=== PATIENT | female | born 1940 | race Caucasian/White ===

== ENCOUNTER 2020-08-03 09:32 | Inpatient (IN) | payer MEDICARE, MEDICAID ==
[~2020-08-03] VITALS: Ht 162.6 cm; Wt 65.5 kg
[2020-08-03] VITALS (14 sets, daily range): BP systolic 111–132; BP diastolic 40–61
[2020-08-03] MEDS ORDERED: MORPHINE SULFATE 4 MG/ML CPJ (NOT FOR IM USE) IV STA (09:51)
[2020-08-03] MEDS ORDERED: ONDANSETRON HCL 4MG/2ML INJ IV STA (09:51)
[2020-08-03 10:23] LABS: CHLORIDE 105 mEq/L (98-107)
[2020-08-03 10:25] LABS: BASOPHILS % 0.5 % (0.0-2.0); EOSINOPHILS % 0.1 % (0.0-5.0); HEMATOCRIT. 31.1 % (36.0-48.0); HEMOGLOBIN. 10.9 g/dL (12.0-16.0); LYMPHOCYTES % 10.1 % (20.0-50.0); MEAN CORPUSCULAR HEMOGLOBIN 33.8 pg (28.0-32.0); MEAN CORPUSCULAR VOLUME 96.3 fL (81.0-99.0); MEAN PLATELET VOLUME 10.2 fl (7.4-10.4); MONOCYTES % 6.9 % (2.0-8.0); NEUTROPHILS % 82.4 % (40.0-76.0); PLATELET 131 x1000/uL (130-400); RED BLOOD CELL COUNT 3.23 mill/uL (4.2-5.4)
[2020-08-03] MEDS ORDERED: LEVETIRACETAM 500MG PREMIX 100 ML IV ONE (11:30)
[2020-08-03 12:11] LABS: INR 1.1; PARTIAL THROMBOPLASTIN TIME 30.2 sec (23.4-31.0); PROTHROMBIN TIME 11.4 sec (9.6-11.0)
[2020-08-03] MEDS ORDERED: NICARDIPINE 100 MG in SODIUM CHLORIDE 0.9% 60 ML IV PRN (12:30)
[2020-08-03] MEDS ORDERED: MAGNESIUM/ALUMINUM HYDROXIDE/SIMETHICONE 30ML UDC PO PRN (13:30)
[2020-08-03] MEDS ORDERED: CLONIDINE 0.1MG TABLET PO PRN (13:30)
[2020-08-03] MEDS ORDERED: LORAZEPAM 2MG/ML CPJ IV PRN (13:30)
[2020-08-03] MEDS ORDERED: DOCUSATE SODIUM 100MG CAPSULE PO PRN (13:30)
[2020-08-03] MEDS ORDERED: GUAIFENESIN 200MG/10ML SUGAR FREE UDC PO PRN (13:30)
[2020-08-03] MEDS ORDERED: ACETAMINOPHEN 325MG TABLET PO PRN (13:30)
[2020-08-03] MEDS: DEXT 5%/0.9% NACL 1,000 ML IV SCH (14:13)
[2020-08-03 19:15] LABS: CLARITY URINE CLEAR (CLEAR); COLOR URINE YELLOW (YELLOW); KETONES URINE TRACE (NEGATIVE); LEUKOCYTE ESTERASE URINE NEGATIVE (NEGATIVE); NITRITE URINE NEGATIVE (NEGATIVE); OCCULT BLOOD URINE NEGATIVE (NEGATIVE); PROTEIN URINE 3+ (NEGATIVE); SPECIFIC GRAVITY URINE 1.023 (1.005-1.030); UROBILINOGEN URINE 0.2 E.U./dL (0.2-1.0)
[2020-08-03] MEDS: ONDANSETRON HCL 4MG/2ML INJ IV PRN (21:37)
[2020-08-03] MEDS: MORPHINE SULFATE 2 MG/ML CPJ (NOT FOR IM USE) IV PRN (21:38)
[2020-08-03] MEDS: NICARDIPINE 100 MG in SODIUM CHLORIDE 0.9% 60 ML IV PRN (22:48)
[2020-08-04] VITALS (78 sets, daily range): BP systolic 117–153; BP diastolic 42–101
[2020-08-04] MEDS ORDERED: AMLO10TA4 MT (00:22)
[2020-08-04] MEDS ORDERED: APIX2.5T MT (00:22)
[2020-08-04] MEDS: NICARDIPINE 100 MG in SODIUM CHLORIDE 0.9% 60 ML IV PRN (00:53)
[2020-08-04] MEDS: MORPHINE SULFATE 2 MG/ML CPJ (NOT FOR IM USE) IV PRN ×2 (03:55→06:06)
[2020-08-04 05:04] LABS: BASOPHILS % 0.3 % (0.0-2.0); EOSINOPHILS % 0.1 % (0.0-5.0); HEMOGLOBIN. 10.7 g/dL (12.0-16.0); LYMPHOCYTES % 10.4 % (20.0-50.0); MEAN CORPUSCULAR HEMOGLOBIN 33.6 pg (28.0-32.0); MEAN CORPUSCULAR VOLUME 96.9 fL (81.0-99.0); MEAN PLATELET VOLUME 8.7 fl (7.4-10.4); NEUTROPHILS % 82.2 % (40.0-76.0); PLATELET 112 x1000/uL (130-400); RED CELL DISTRIBUTION WIDTH 13.4 % (11.6-14.6)
[2020-08-04 05:09] LABS: CHLORIDE 102 mEq/L (98-107)
[2020-08-04 05:10] LABS: PROTHROMBIN TIME 11.1 sec (9.6-11.0)
[2020-08-04 05:31] LABS: HDL CHOLESTEROL 66 mg/dL (40-59)
[2020-08-04 05:35] LABS: LDL CHOLESTEROL 40 mg/dL (5-100)
[2020-08-04 05:43] LABS: T4 FREE 1.12 ng/dL (0.76-1.46)
[2020-08-04] MEDS: ONDANSETRON HCL 4MG/2ML INJ IV PRN (06:51)
[2020-08-04] MEDS: HYDROMORPHONE HCL/PF 2MG/ML CPJ IV PRN ×3 (08:37→20:32)
[2020-08-04] MEDS ORDERED: LEVO88TA7 PO (10:17)
[2020-08-04] MEDS ORDERED: FURO-152 PO (10:17)
[2020-08-04] MEDS ORDERED: PANT40TA51 PO (10:17)
[2020-08-04] MEDS ORDERED: NIFE-33 PO (10:17)
[2020-08-04] MEDS ORDERED: NEPVIT MT (10:17)
[2020-08-04] MEDS: DEXT 5%/0.9% NACL 1,000 ML IV SCH ×2 (14:49→14:50)
[2020-08-04] MEDS ORDERED: DEXTROSE 50% WATER 50ML SYRINGE IV PRN (20:48)
[2020-08-05] VITALS (10 sets, daily range): BP systolic 127–161; BP diastolic 57–74
[2020-08-05] MEDS: BLOOD SUGAR DIAGNOSTIC STRIP TEST SCH ×4 (00:55→17:29)
[2020-08-05] MEDS: HYDROMORPHONE HCL/PF 2MG/ML CPJ IV PRN (03:31)
[2020-08-05] MEDS: INSULIN LISPRO 100 UNITS/ML SUBCUT SCH ×4 (06:00→17:29)
[2020-08-05 06:25] LABS: BASOPHILS % 0.3 % (0.0-2.0); EOSINOPHILS % 0.3 % (0.0-5.0); HEMATOCRIT. 31.1 % (36.0-48.0); HEMOGLOBIN. 10.5 g/dL (12.0-16.0); LYMPHOCYTES % 9.4 % (20.0-50.0); MEAN CORPUSCULAR HEMOGLOBIN 33.6 pg (28.0-32.0); MEAN CORPUSCULAR VOLUME 99.1 fL (81.0-99.0); MEAN PLATELET VOLUME 8.6 fl (7.4-10.4); MONOCYTES % 8.1 % (2.0-8.0); NEUTROPHILS % 81.9 % (40.0-76.0); PLATELET 99 x1000/uL (130-400); RED BLOOD CELL COUNT 3.14 mill/uL (4.2-5.4)
[2020-08-05] MEDS ORDERED: BACITRACIN 15GM TUBE TOP ONE (08:23)
[2020-08-05] MEDS ORDERED: BUPIVACAINE HCL/PF 0.5% (5MG/ML) 10ML ONE ×2 (08:23→11:07)
[2020-08-05] MEDS ORDERED: BACITRACIN 50,000 UNITS/VIAL ONE (08:24)
[2020-08-05] MEDS ORDERED: VANCOMYCIN HCL 1 GM/VIAL ONE (08:24)
[2020-08-05] MEDS ORDERED: ROPIVACAINE HCL 10MG/ML 20 ML VIAL EPI ONE (08:25)
[2020-08-05] MEDS ORDERED: AMLODIPINE 5MG TABLET PO SCH (11:15)
[2020-08-05] MEDS ORDERED: GLYCOPYRROLATE 0.2 MG/ML 2ML VIAL ONE (11:23)
[2020-08-05] MEDS ORDERED: FENTANYL CITRATE/PF 50MCG/ML 2ML VIAL ONE (11:23)
[2020-08-05] MEDS ORDERED: MIDAZOLAM HCL 2 MG/2 ML VIAL ONE (11:23)
[2020-08-05] MEDS ORDERED: SUCCINYLCHOLINE CHLORIDE 200MG/10ML IV ONE (11:23)
[2020-08-05] MEDS ORDERED: PROPOFOL 200MG/20ML VIAL IV ONE (11:23)
[2020-08-05] MEDS ORDERED: CEFAZOLIN SODIUM 1000MG/VIAL ONE (11:24)
[2020-08-05] MEDS ORDERED: METOCLOPRAMIDE HCL 10MG/2ML VIAL ONE (11:24)
[2020-08-05] MEDS ORDERED: ONDANSETRON HCL 4MG/2ML INJ ONE (11:24)
[2020-08-05] MEDS ORDERED: MORPHINE SULFATE 2 MG/ML CPJ (NOT FOR IM USE) IV PRN (12:30)
[2020-08-05] MEDS ORDERED: ONDANSETRON HCL 4MG/2ML INJ IV PRN (12:30)
[2020-08-05] MEDS ORDERED: SODIUM CHLORIDE 0.9% 1,000 ML IV ONE (12:30)
[2020-08-05] MEDS ORDERED: HYDROMORPHONE HCL/PF 2MG/ML CPJ IV PRN (12:30)
[2020-08-05] MEDS ORDERED: CEFAZOLIN SODIUM 1000MG/VIAL IV SCH (14:00)
[2020-08-05] MEDS: MORPHINE SULFATE 2 MG/ML CPJ (NOT FOR IM USE) IV PRN (17:38)
[2020-08-05] MEDS: METOPROLOL TARTRATE 25MG TABLET PO SCH (21:24)
[2020-08-06] VITALS (11 sets, daily range): BP systolic 110–156; BP diastolic 41–66
[2020-08-06] MEDS: BLOOD SUGAR DIAGNOSTIC STRIP TEST SCH ×4 (00:05→17:20)
[2020-08-06] MEDS: INSULIN LISPRO 100 UNITS/ML SUBCUT SCH ×4 (05:53→17:20)
[2020-08-06 08:29] LABS: BASOPHILS % 0.4 % (0.0-2.0); EOSINOPHILS % 0.2 % (0.0-5.0); HEMATOCRIT. 23.6 % (36.0-48.0); LYMPHOCYTES % 10.8 % (20.0-50.0); MEAN CORPUSCULAR HEMOGLOBIN 34.2 pg (28.0-32.0); MEAN CORPUSCULAR VOLUME 100.4 fL (81.0-99.0); MEAN PLATELET VOLUME 9.2 fl (7.4-10.4); MONOCYTES % 9.2 % (2.0-8.0); NEUTROPHILS % 79.4 % (40.0-76.0); PLATELET 95 x1000/uL (130-400); RED BLOOD CELL COUNT 2.35 mill/uL (4.2-5.4); RED CELL DISTRIBUTION WIDTH 13.7 % (11.6-14.6)
[2020-08-06] MEDS: METOPROLOL TARTRATE 25MG TABLET PO SCH (08:34)
[2020-08-06] MEDS: CEFAZOLIN 1000MG PREMIX 50 ML IV SCH (08:34)
[2020-08-06] MEDS: AMLODIPINE 5MG TABLET PO SCH ×2 (08:39→21:35)
[2020-08-06] MEDS: HYDROCODONE/ACETAMINOPHEN 5/325MG TABLET PO PRN ×3 (09:19→21:36)
[2020-08-06] MEDS ORDERED: MAGNESIUM HYDROXIDE 400MG/5ML 30ML UDC PO PRN (10:15)
[2020-08-06] MEDS ORDERED: MAGNESIUM/ALUMINUM HYDROXIDE/SIMETHICONE 30ML UDC PO PRN (10:15)
[2020-08-06] MEDS: DEXT 5%/0.9% NACL 1,000 ML IV SCH (12:18)
[2020-08-07] VITALS (16 sets, daily range): BP systolic 127–156; BP diastolic 45–94
[2020-08-07] MEDS: BLOOD SUGAR DIAGNOSTIC STRIP TEST SCH ×5 (00:06→23:57)
[2020-08-07] MEDS: METOPROLOL TARTRATE 25MG TABLET PO SCH ×3 (00:10→23:57)
[2020-08-07] MEDS: ONDANSETRON HCL 4MG/2ML INJ IV PRN (01:37)
[2020-08-07] MEDS: HYDROCODONE/ACETAMINOPHEN 5/325MG TABLET PO PRN ×2 (05:12→21:15)
[2020-08-07] MEDS: INSULIN LISPRO 100 UNITS/ML SUBCUT SCH ×4 (06:00→18:00)
[2020-08-07 06:48] LABS: BASOPHILS % 0.3 % (0.0-2.0); EOSINOPHILS % 2.3 % (0.0-5.0); LYMPHOCYTES % 12.1 % (20.0-50.0); MEAN CORPUSCULAR HEMOGLOBIN 34.1 pg (28.0-32.0); MEAN CORPUSCULAR VOLUME 99.8 fL (81.0-99.0); MEAN PLATELET VOLUME 8.3 fl (7.4-10.4); MONOCYTES % 9.3 % (2.0-8.0); PLATELET 97 x1000/uL (130-400); RED BLOOD CELL COUNT 2.06 mill/uL (4.2-5.4); RED CELL DISTRIBUTION WIDTH 14.1 % (11.6-14.6)
[2020-08-07 08:17] LABS: HEMATOCRIT. 20.6 % (36.0-48.0)
[2020-08-07] MEDS: AMLODIPINE 5MG TABLET PO SCH ×2 (09:06→21:15)
[2020-08-07] MEDS: CEFAZOLIN 1000MG PREMIX 50 ML IV SCH (09:06)
[2020-08-07] MEDS: DEXT 5%/0.9% NACL 1,000 ML IV SCH (13:00)
[2020-08-07 21:43] LABS: HEMATOCRIT 26.1 % (36.0-48.0); HEMOGLOBIN 9.1 g/dL (12.0-16.0)
[2020-08-07 21:49] LABS: PROTHROMBIN TIME 10.6 sec (9.6-11.0)
[2020-08-08] VITALS (9 sets, daily range): BP systolic 128–146; BP diastolic 41–57
[2020-08-08] MEDS: HYDROCODONE/ACETAMINOPHEN 5/325MG TABLET PO PRN ×2 (05:39→13:16)
[2020-08-08] MEDS: BLOOD SUGAR DIAGNOSTIC STRIP TEST SCH ×2 (05:39→11:52)
[2020-08-08] MEDS: INSULIN LISPRO 100 UNITS/ML SUBCUT SCH ×3 (05:44→12:11)
[2020-08-08] MEDS: ONDANSETRON HCL 4MG/2ML INJ IV PRN (06:05)
[2020-08-08 06:12] LABS: BASOPHILS % 0.4 % (0.0-2.0); EOSINOPHILS % 3.5 % (0.0-5.0); HEMATOCRIT. 24.8 % (36.0-48.0); HEMOGLOBIN. 8.5 g/dL (12.0-16.0); LYMPHOCYTES % 17.5 % (20.0-50.0); MEAN PLATELET VOLUME 8.6 fl (7.4-10.4); NEUTROPHILS % 68.6 % (40.0-76.0); PLATELET 96 x1000/uL (130-400); RED BLOOD CELL COUNT 2.59 mill/uL (4.2-5.4); RED CELL DISTRIBUTION WIDTH 15.1 % (11.6-14.6)
[2020-08-08] MEDS: CEFAZOLIN 1000MG PREMIX 50 ML IV SCH (08:10)
[2020-08-08] MEDS: METOPROLOL TARTRATE 25MG TABLET PO SCH (08:11)
[2020-08-08] MEDS: AMLODIPINE 5MG TABLET PO SCH (08:11)
[2020-08-08] MEDS ORDERED: HYDRALAZINE HCL 25MG TABLET PO SCH (14:00)
[2020-08-08] MEDS ORDERED: METOPROLOL TARTRATE 25MG TABLET PO SCH (21:00)
== END 2020-08-08 16:28 | disposition home health service (06) | DRG 480 ==
LOC: ER 09:41 → MICUSO 11:29 → EDBEDREQSVC 11:32 → EDBEDREQ 11:32 → EDBEDREQTM 11:32 → SUPCPDRO 13:22 → ENRESERV 19:39 → 3WST 08-04 21:10
PROVIDERS: ADMIT Hospitalist; ATTEND Hospitalist
PROC: 5A1D70Z Performance of Urinary Filtration, Intermittent, Less than 6 Hours Per Day (ICD-10-PCS; 2020-08-04)
PROC: 0QS604Z Reposition Right Upper Femur with Internal Fixation Device, Open Approach (ICD-10-PCS; principal; 2020-08-05)
PROC: 5A1D70Z Performance of Urinary Filtration, Intermittent, Less than 6 Hours Per Day (ICD-10-PCS; 2020-08-06)
PROC: 30233N1 Transfusion of Nonautologous Red Blood Cells into Peripheral Vein, Percutaneous Approach (ICD-10-PCS; 2020-08-07)
PROC: 5A1D70Z Performance of Urinary Filtration, Intermittent, Less than 6 Hours Per Day (ICD-10-PCS; 2020-08-08)
PROC: 4A10X4Z Monitoring of Central Nervous Electrical Activity, External Approach (ICD-10-PCS; 2020-08-08)
DX: S72.141A Displaced intertrochanteric fracture of right femur, initial encounter for closed fracture (principal); I61.5 Nontraumatic intracerebral hemorrhage, intraventricular; N18.6 End stage renal disease; I50.33 Acute on chronic diastolic (congestive) heart failure; D62 Acute posthemorrhagic anemia; E44.1 Mild protein-calorie malnutrition; D68.59 Other primary thrombophilia; I13.2 Hypertensive heart and chronic kidney disease with heart failure and with stage 5 chronic kidney disease, or end stage renal disease; I31.3 Pericardial effusion (noninflammatory); E78.00 Pure hypercholesterolemia, unspecified; D69.6 Thrombocytopenia, unspecified; Z99.2 Dependence on renal dialysis; E03.9 Hypothyroidism, unspecified; E11.22 Type 2 diabetes mellitus with diabetic chronic kidney disease; E78.5 Hyperlipidemia, unspecified; R79.89 Other specified abnormal findings of blood chemistry; R53.1 Weakness; Z20.822 Contact with and (suspected) exposure to COVID-19; F32.9 Major depressive disorder, single episode, unspecified; K21.9 Gastro-esophageal reflux disease without esophagitis; I48.0 Paroxysmal atrial fibrillation; W06.XXXA Fall from bed, initial encounter; S09.90XA Unspecified injury of head, initial encounter; Z79.01 Long term (current) use of anticoagulants; Z85.05 Personal history of malignant neoplasm of liver; Z68.24 Body mass index [BMI] 24.0-24.9, adult; Y93.89 Activity, other specified; Y92.092 Bedroom in other non-institutional residence as the place of occurrence of the external cause; Y99.8 Other external cause status
CPT/HCPCS: 36415; 71045; 72192; 73502; 73552; 73560; 76000; 80048; 80053; 80061; 81003; 82962; 83036; 83880; 84439; 84443; 84484; 85014; 85018; 85025; 85049; 85384; 86850; 86900; 86920; 87426; 93005; 93306; 95816; 97162; 97166; 97530; 99291; C1713; J0330; J0690; J1170; J1815; J1953; J2250; J2270; J2405; J2704; J2765; J2795; J3010; J3370; J3490; J7042; J7050; P9016; A4315

== ENCOUNTER 2021-11-17 10:57 | Emergency (ER) | payer MEDICARE, MEDICAID ==
[~2021-11-17] VITALS: Ht 160 cm; Wt 66.0 kg
[~2021-11-17 10:57] MED LIST: AMLO10TA4 MT; APIX2.5T MT; FURO-152 PO; LEVO88TA7 PO; NEPVIT MT; NIFE-33 PO; PANT40TA51 PO
[2021-11-17] MEDS ORDERED: ONDANSETRON HCL 4MG/2ML INJ IV PRN (12:00)
[2021-11-17] MEDS ORDERED: IPRATROPIUM/ALBUTEROL 0.5-3(2.5)MG/3ML NEB NEB PRN (12:00)
[2021-11-17] MEDS ORDERED: CLONIDINE 0.1MG TABLET PO PRN (12:00)
[2021-11-17] MEDS ORDERED: ACETAMINOPHEN 325MG TABLET PO PRN (12:00)
[2021-11-17] MEDS ORDERED: ENOXAPARIN 40MG/0.4ML SYR SUBCUT SCH (12:00)
[2021-11-17 12:05] LABS: BASOPHILS % 0.5 % (0.0-2.0); EOSINOPHILS % 3.2 % (0.0-5.0); HEMATOCRIT. 26.2 % (36.0-48.0); MEAN CORPUSCULAR HEMOGLOBIN 33.5 pg (28.0-32.0); MEAN CORPUSCULAR VOLUME 97.8 fL (81.0-99.0); MEAN PLATELET VOLUME 8.3 fl (7.4-10.4); MONOCYTES % 9.5 % (2.0-8.0); NEUTROPHILS % 59.8 % (40.0-76.0); PLATELET 82 x1000/uL (130-400); RED BLOOD CELL COUNT 2.68 mill/uL (4.2-5.4); RED CELL DISTRIBUTION WIDTH 14.5 % (11.6-14.6)
[2021-11-17 12:15] LABS: PHOSPHORUS 4.6 mg/dL (2.5-4.9)
[2021-11-17] MEDS ORDERED: CEFTRIAXONE 1 G PREMIX 50 ML IV SCH (13:00)
[2021-11-17 14:25] LABS: HEPATITIS B SURFACE ANTIGEN NEGATIVE
[2021-11-17 14:39] VITALS: BP 102/65
[2021-11-17] MEDS ORDERED: APIXABAN 2.5 MG TABLET PO SCH (17:00)
[2021-11-18] MEDS ORDERED: LEVOTHYROXINE SODIUM 88MCG TABLET PO SCH (09:00)
[2021-11-18] MEDS ORDERED: AMLODIPINE 10MG TABLET PO SCH (09:00)
[2021-11-18] MEDS ORDERED: FOLIC ACID/VITAMIN B COMP W-C TABLET PO SCH (09:00)
== END 2021-11-17 14:43 | disposition home or self-care (01) ==
LOC: ER 10:57 → CANBEDREQ 14:37 → ER 14:43
DX: E11.22 Type 2 diabetes mellitus with diabetic chronic kidney disease (principal); I12.0 Hypertensive chronic kidney disease with stage 5 chronic kidney disease or end stage renal disease; N18.6 End stage renal disease; Z20.822 Contact with and (suspected) exposure to COVID-19
CPT/HCPCS: 36415; 71045; 80069; 85025; 86705; 86709; 86803; 87040; 87340; 87426; 96365; 99284; C9803; J0696

== ENCOUNTER → 2023-06-20 | Day surgery (SDC) | payer MEDICARE, MEDICAID ==
[~2023-06-20] VITALS: Ht 160 cm; Wt 63.5 kg
[~2023-06-20] MED LIST changes: +AMI2 PO; -AMLO10TA4 MT; +AMOX1TAB16 PO; +ASPI-1160 PO; +AZIT250T12 PO; +FENTANYL CITRATE/PF 50MCG/ML 2ML VIAL ONE; -FURO-152 PO; +GENTAMICIN/NS IRRIGATION 500 ML IR NR; +LIDOCAINE HCL 1% 20ML VIAL (Pyxis) INJ ONE; +MIDAZOLAM HCL 2 MG/2 ML VIAL ONE; +MIDO5TAB4 PO; +MIRT7.5T11 PO; -NIFE-33 PO; +ONDANSETRON HCL 4MG/2ML INJ ONE; +PRAV40TA58 PO
[2023-06-20 08:16] LABS: BASOPHILS % 0.4 % (0.0-2.0); DIFFERENTIAL COMMENT 0; EOSINOPHILS % 1.6 % (0.0-5.0); HEMATOCRIT. 26.7 % (36.0-48.0); HEMOGLOBIN. 9.2 g/dL (12.0-16.0); LYMPHOCYTES % 9.5 % (20.0-50.0); MEAN CORPUSCULAR HEMOGLOBIN 35.4 pg (28.0-32.0); MEAN CORPUSCULAR HGB CONC 34.5 g/dL (31.0-37.0); MEAN CORPUSCULAR VOLUME 102.6 fL (81.0-99.0); MEAN PLATELET VOLUME 8.1 fl (7.4-10.4); MONOCYTES % 11.9 % (2.0-8.0); NEUTROPHILS % 76.6 % (40.0-76.0); PLATELET 112 x1000/uL (130-400); RED CELL DISTRIBUTION WIDTH 15.7 % (11.6-14.6); WHITE BLOOD COUNT 3.5 x1000/uL (4.5-11.0)
[2023-06-20 08:27] LABS: INR 1.1; PARTIAL THROMBOPLASTIN TIME 30.5 sec (23.4-31.0); PROTHROMBIN TIME 11.7 sec (9.6-11.0)
[2023-06-20 08:32] LABS: POTASSIUM 3.7 mEq/L (3.5-5.1)
[2023-06-20 08:33] LABS: CREATININE 6.6 mg/dL (0.6-1.0)
== END | disposition home or self-care (01) ==
LOC: CCL 07:18
PROVIDERS: ATTEND Internal Medicine Clinical Cardiac Electrophysiology
DX: Z45.018 Encounter for adjustment and management of other part of cardiac pacemaker (principal); Z53.8 Procedure and treatment not carried out for other reasons; I49.5 Sick sinus syndrome; N18.6 End stage renal disease; I48.4 Atypical atrial flutter; I48.0 Paroxysmal atrial fibrillation; Z79.899 Other long term (current) drug therapy; Z98.890 Other specified postprocedural states
CPT/HCPCS: 80048; 85025; 85610; 85730; 36415; 93005; J2250; J2405; J1644; Z7610 ×6; J3010; J3490